=== PATIENT | female | born 1965 | race African-American/Black ===

== ENCOUNTER → 2017-08-30 | Outpatient (CLI) | payer OTHER ==
[~2017-08-30] VITALS: Ht 165.1 cm; Wt 80.5 kg
[~2017-08-30] MED LIST: ACYCLOVIR 400400 MG PO; ALEVE220 M1 PO; AMITRIPTYLINE H25 M2 PO; AMITRIPTYLINE H50 M2 PO; APAP500 PO; ATIVAN0.5 MG PO; CITRATE OF MAG296 ML PO; COLACE 100 MG100 MG PO; DOLOPHINE HCL10 MG PO; ELAVIL PO; FLEXERIL PO; MEDROLDOSEPACK PO; METHADONE HCL 110 M1 PO; METHADONE HCL 110 MG PO; METHADOSE10 M1 PO; METHADOSE10 MG PO; MOBIC15 MG PO; MORPHINE TOP; NEURONTIN 300300 M1 PO; NICOTINE TRANSD21 M1 TRANSDERM; PEPCID20 MG PO; PERCOCET 5-3251 EACH PO; PERCOCET 7.5-51 EACH PO; SILVADENE TOP; XANAX 0.5 MG0.5 M1 PO; XANAX 0.5 MG0.5 MG PO; ZYVOX600 MG PO
--- NOTE | ~2017-08-30 | HPC ---
[facility] [address] [place] [address] PAIN MANAGEMENT CONSULTATION Name: JAREK FLETCHER Room #: REG [facility]#: [id number] Admission: 08/30/17 Attend Phys: Maria Elena Rouse MD Discharge: Date of : 69 Report #: [id number] THIS REPORT FOR: //name// CC: Maria Elena Beach DATE OF SERVICE: 08/30/2017 FOLLOWUP COMPLAINT: "Here for medication renewal." FOLLOWUP HISTORY: The patient is a 52-year-old female who has been seen in the pain clinic in the past. As you may recall, she has had some cervical problems and undergone cervical stabilization with placement of screws and metal. She has had some problems since we saw her last. Last time we saw her, she was going into the operating room at which time an infection was being drained from under her left arm. She has done reasonably well since then. She moved to [place]. After staying in [place] for a while, she felt that [place] was more appropriate. She has moved back [place] and would like to resume medications and treatment in the pain clinic. PHYSICAL EXAMINATION: Blood pressure is 107/80, pulse 81, respiratory rate 16, room air saturation is 100, height 5 feet 5 inches, weight 177 pounds, BMI is 29. The patient has pain and discomfort in her left arm with pain radiating down into the thumb with some numbness in her fingers. Rates her pain as a 2 now, but can rise to level of 7 by the time she finishes work and goes home. Notes that too much activity exacerbates her pain. Head maneuvering and turning can exacerbate pain as well. The change in the weather from hot to cold as well as rainy weather impacts her as well. She finds that muscle relaxants are helpful, rest is helpful as well. IMPRESSION: 1. History of cervical radiculopathy status post cervical fusion with screws and metal. 2. GI upset, takes Pepcid. CURRENT MEDICATIONS: Colace 100 mg b.i.d., Pepcid 20 mg b.i.d., methadone 10 mg b.i.d., gabapentin 300 mg b.i.d., Flexeril 10 mg t.i.d., amitriptyline 25 mg at bedtime 2 pills for a total of 50 mg. RECOMMENDATION: We discussed treatment options with the patient. We will continue with her current medical regimen. She states that she keeps her opioid medications in a controlled environment. She has had no problem with some causing difficulty in mentation. A script for these medications have been written. The patient will call us if she has any problems with her medications. [address] [address] PAIN MANAGEMENT CONSULTATION Name: JAREK FLETCHER Room #: REG CLRita Avalos.#: [id number] Admission: 08/30/17 Attend Phys: Maria Elena Rouse MD Discharge: Date of : 69 Report #: [id number] We would like to thank you for letting us participate in her care. We hope she continues to improve. <ELECTRONICALLY SIGNED> By: Maria Elena Rouse MD 09/06/17 0825 [id number] Maria Elena Rouse MD /PMT
[2017-08-30 10:01] VITALS: BP 107/80
== END | disposition home or self-care (01) ==
LOC: PAIN 07:08
DX: M54.12 Radiculopathy, cervical region (principal); F17.200 Nicotine dependence, unspecified, uncomplicated

== ENCOUNTER → 2018-03-20 | Outpatient (CLI) | payer OTHER | LOC: RAD 13:46 | DX: Z12.31 Encounter for screening mammogram for malignant neoplasm of breast (principal) ==

== ENCOUNTER → 2018-08-01 | Outpatient (CLI) | payer OTHER ==
[~2018-08-01] VITALS: Ht 165.1 cm; Wt 83.6 kg
[~2018-08-01] MED LIST changes: +ACYCLOVIR 800800 MG PO; +CLONIDINE HCL0.1 MG PO; +LIDODERM1 EACH TOP; +LIDODERM1 EACH TRANSDERM; +NORCO 5-325 TA1 EACH PO
[2018-08-01 13:08] VITALS: BP 143/95
== END ==
LOC: PAIN 07:06
DX: M54.2 Cervicalgia (principal); G89.29 Other chronic pain; M79.641 Pain in right hand; Z79.899 Other long term (current) drug therapy

== ENCOUNTER 2018-09-17 08:26 | Emergency (ER) | payer OTHER ==
[~2018-09-17] VITALS: Ht 165.1 cm; Wt 81.7 kg
[2018-09-17 11:17] VITALS: BP 120/87
[2018-09-17] MEDS ORDERED: MEDROLDOSEPACK PO (11:21)
[2018-09-19] MEDS ORDERED: PEPCID20 MG PO (13:47)
[2018-09-19] MEDS ORDERED: AMITRIPTYLINE H25 M2 PO (14:29)
[2018-09-19] MEDS ORDERED: METHADONE HCL 110 M1 PO (14:29)
[2018-09-19] MEDS ORDERED: NEURONTIN 300300 M1 PO (14:29)
[2018-09-19] MEDS ORDERED: XANAX 0.5 MG0.5 MG PO (14:29)
[2018-09-19] MEDS ORDERED: METHADOSE10 MG PO (14:29)
== END 2018-09-17 11:27 | disposition home or self-care (01) ==
LOC: ER 08:26
DX: M54.12 Radiculopathy, cervical region (principal); F41.9 Anxiety disorder, unspecified; Z88.8 Allergy status to other drugs, medicaments and biological substances; Z90.710 Acquired absence of both cervix and uterus

== ENCOUNTER → 2018-09-19 | Outpatient (CLI) | payer OTHER ==
[~2018-09-19] VITALS: Ht 165.1 cm; Wt 86.3 kg
[2018-09-19 13:39] VITALS: BP 107/74
== END ==
LOC: PAIN 06:59
DX: M54.2 Cervicalgia (principal); M25.512 Pain in left shoulder; M25.511 Pain in right shoulder; G89.29 Other chronic pain; M79.602 Pain in left arm; M79.601 Pain in right arm; F17.200 Nicotine dependence, unspecified, uncomplicated; Z79.899 Other long term (current) drug therapy; Z79.891 Long term (current) use of opiate analgesic; Z72.89 Other problems related to lifestyle

== ENCOUNTER → 2018-11-27 | Outpatient (CLI) | payer OTHER | LOC: RAD 09:52 | DX: M79.641 Pain in right hand (principal); M79.642 Pain in left hand ==

== ENCOUNTER → 2019-02-16 | Emergency (ER) | payer OTHER ==
[~2019-02-16] VITALS: Ht 165.1 cm; Wt 80.7 kg
[2019-02-17 00:17] VITALS: BP 118/84
== END ==
LOC: ER 22:26
DX: S61.211A Laceration without foreign body of left index finger without damage to nail, initial encounter (principal); F41.9 Anxiety disorder, unspecified; Z88.8 Allergy status to other drugs, medicaments and biological substances; Z90.710 Acquired absence of both cervix and uterus; W26.8XXA Contact with other sharp object(s), not elsewhere classified, initial encounter; Y92.89 Other specified places as the place of occurrence of the external cause; Y93.89 Activity, other specified; Y99.8 Other external cause status

== ENCOUNTER → 2019-02-18 | Outpatient (CLI) | payer OTHER | LOC: MRI 08:34 | DX: M50.222 Other cervical disc displacement at C5-C6 level (principal); M47.815 Spondylosis without myelopathy or radiculopathy, thoracolumbar region; M48.02 Spinal stenosis, cervical region; M43.22 Fusion of spine, cervical region; F17.200 Nicotine dependence, unspecified, uncomplicated ==

== ENCOUNTER → 2019-03-27 | Outpatient (CLI) | payer OTHER ==
[~2019-03-27] VITALS: Ht 165.1 cm; Wt 84.4 kg
[~2019-03-27] MED LIST changes: +AMITRIPTYLINE100 MG PO; +TORADOL 10 MG T10 MG PO
--- NOTE | ~2019-03-27 | HPC ---
[facility] [address] [place] [address] PAIN MANAGEMENT CONSULTATION Name: JAREK FLETCHER Room #: REG [facility]#: [id number] Admission: 03/27/19 ������������������ Attend Phys: Maria Elena Rouse MD Discharge: ������������������ Date of : 69 Report #: [id number] THIS REPORT FOR: //name// CC: Lebron Rouse DATE OF SERVICE: 03/27/2019 FOLLOWUP COMPLAINT: Here for medicine renewal. HISTORY OF PRESENT ILLNESS: The patient is a 53-year-old female who has been seen in the pain clinic for a number of years. As you recall, she suffers from cervical radiculopathy. She has undergone surgery, but still has pain, which has been problematic. She has had imaging of her neck, which shows possibility of some worsening of her condition. She is reported to have some progression of the disk and uncovertebral degenerative changes at C3/C4, C4/T5 and T1/T2. There is also spinal stenosis at C4/C5. She notes increased pain in her shoulders. Notes that she continues to work on a daily basis. There are sometimes when her pain is more problematic, she states that she makes her work environment ergonomically positioned as possible. Notes that sometimes work on the computer can exacerbate her discomfort. States that she sits on a chair that raises her arms up to sit at a computer at a better angle, but this caused her legs to dangle. She notes some pain and discomfort in her right hand, left hand, and in her fingers. Noticed some increased pain in her finger. States that she did undergo shot in the area of the finger on the right hand. Noted some improvement in that. Does suffer from Raynaud's syndrome that has been reasonably stable at this juncture. Has increased her Elavil medication to 100 mg daily. She feels that this is helpful. She is not having any side effects from that. She has used methadone and her other opioid medications in the past. They have caused considerable amounts of constipation. She sometimes is reluctant to use them because of the constipation. She has undergone injections with Toradol in the past that has been helpful with pain. Notes that her pain sometimes becomes great and this affects her migraines. She does use gabapentin. She has used some creams on her neck. Some of the [id number]-[id number] medications has caused some skin irritation and she is unable to use them. She does note some swelling in her trapezius areas bilaterally. ALLERGIES: MELOXICAM. CURRENT MEDICATIONS: Clonidine 0.1 mg at bedtime, Lidoderm patches to skin, gabapentin 300 mg t.i.d., acyclovir 800 mg, methadone 10 mg 1 p.o. b.i.d., Pepcid 20 mg b.i.d., Elavil was 75 mg now, 100 mg at bedtime, cyclobenzaprine 10 mg t.i.d., and alprazolam 0.5 mg at bedtime for anxiety. PAIN CLINIC ASSESSMENT AND PQRS: [address] [address] PAIN MANAGEMENT CONSULTATION Name: JAREK FLETCHER Room #: REG VARINDER Villarreal#: [id number] Admission: 03/27/19 ������������������ Attend Phys: Maria Elena Rouse MD Discharge: ������������������ Date of : 69 Report #: [id number] 1. History of osteoarthritis. The patient has some arthritic changes in her neck. She is status post fusion. The patient is being treated for rheumatoid arthritis by her tamping machine operator. 2. Height 5 feet 5 inches, weight 186 pounds, BMI is 31. 3. Vital signs: Blood pressure 140/79, pulse 86, respiratory rate 16, room air saturation 98%. Pain intensity is 7/10. 4. Fall history. The patient has not fallen in the last 3 months. 5. Blood thinner. The patient is not on a blood thinning medication. 6. Hypertension. The patient is being treated for hypertension. 7. Opioids greater than 6 weeks. The patient received her medication from one source, pain clinic. 8. Risk assessment tool, low for opioid use. 9. Functional assessment tool. 10. Recreational drug use. The patient denies use of recreational drugs. 11. Tobacco: The patient smokes tobacco, one-half pack of cigarettes per day, smoked for the last 33 years. Discussed the benefits of smoking cessation. 12. Alcohol. The patient occasionally drinks alcoholic beverages. PHYSICAL EXAMINATION: GENERAL: The patient is a well-developed, well-nourished black female, appears her stated age. She is alert and oriented x 3. Her affect is appropriate. Speech is fluent. HEENT: Normocephalic, atraumatic. Extraocular eye muscles intact. Sclerae nonicteric. Mucous membranes are moist. NECK: Without adenopathy or JVD. The patient complains of some swelling sensation in the trapezius area and lower portion of her neck bilaterally. Complains of some decreased range of motion in her neck since fusion. Has pain, which has been radiating down into her shoulders and to arms. Has not noted much problem with her Raynaud's syndrome. At this juncture, did have some problem with her finger on the right and this was injected by Dr. Zuniga with improvement. HEART: Regular rate. ABDOMEN: Nontender. Bowel sounds present. EXTREMITIES: Lower extremity without significant scoliosis, kyphosis, or lordosis. LABORATORY DATA: MRI of the lumbar spine dated 02/18/2019 reveals: 1. C2-C3 shows no focal disk protrusion canal or neural foraminal stenosis. 2. C5-C6 shows no focal disk protrusion. Fusion is noted at this level. Central canal and neural foramen are maintained similar to prior study. 3. C6-C7 fusion with no disk protrusion. Central canal is maintained. There is some mild foraminal encroachment, greater on the left, which is similar to prior study. 4. The C7-T1 shows minor posterior spurring or disk protrusion to the right protrusion to the right with central canal maintained at 12 mm. There is a ypzy-gc-nogtmngy bilateral foraminal encroachment. Uncovertebral degenerative [address] [address] PAIN MANAGEMENT CONSULTATION Name: JAREK FLETCHER Room #: REG [facility].#: [id number] Admission: 03/27/19 ������������������ Attend Phys: Maria Elena Rouse MD Discharge: ������������������ Date of : 69 Report #: [id number] changes noted. T1/T2 shows diffuse broad-based disk bulge with central canal maintained. There is bilateral moderate foraminal encroachment, which shows progression since prior study. 5. There is focal disk bulging diffusely at C4/C5. This causes central canal narrowing measuring 9 mm. This is asymmetric to the right with greater mass effect on the right. Uncovertebral degenerative changes are noted. This disk bulging and central canal encroachment have progressed since the prior study when the canal measured approximately 10 mm. There is also mild bulging and uncovertebral degenerative change bilaterally at C3/C4. The central canal is maintained. Uncovertebral changes are progressed slightly on the right. These changes cause bilateral foraminal encroachment. IMPRESSION: 1. Cervical radiculopathy with pain radiating down to the last two fingers of left hand. 2. Trigger finger, left hand. 3. Rheumatoid arthritis with ulnar deviation of hands and increasing joint disease. 4. Raynaud's disease. RECOMMENDATIONS: We discussed treatment with the patient. The patient does feel somewhat despondent at that time because of her pain condition. She feels that her medications are helpful. She would like for things to improve. She feels that her medications are helpful. Noticed that the increase in Elavil has been beneficial. Feels that the trigger finger in her right hand has improved after the injection. She states that the pain often triggers her migraines. She has had Toradol shots in the past. Those have been beneficial. We will provide the patient with Toradol pills 10 mg. She will take these episodically. We have explained that Toradol can be somewhat harsh on the GI. She will continue with Elavil. We will provide her with 100 mg tablets. A script for gabapentin will be renewed. She will also continue with Flexeril 10 mg t.i.d. The patient has used some patches as well as some creams on her neck. Feels that these had been beneficial in the past, but did cause some skin irritation. She will continue with methadone. The patient complained of constipation. She will try Movantik 25 mg daily, tablets. These capsules will be provided for the patient. They are quite helpful with patients who have narcotic constipation because of opioid use. She will call us if she has any concerns or problems with the medications. We would like to thank you for letting us participate in her care. We hope she continues to improve. ��������������������������������������������� ���������������������������������������� By: ��������������������������������������������� 1510 0431 Maria Elena Rouse MD /zuly
[2019-03-27 08:35] VITALS: BP 140/79
--- NOTE | 2019-03-27 08:58 | NUR ---
Pain Clinic Assessment: 1. History of Osteoarthritis: Not Applicable History of Rheumatoid Arthritis: Not Applicable 2. Height: 5 ft. 5 in. 165.1 cm. Weight: 186.0 lb. oz. 84.369 kg. Patient's BMI: 31.0 3. Vital Signs: BP: 140/79 Pulse: 86 Resp: 16 Temp: 02 Sat: 98 ECG Mon: 4. Pain Intensity: 7 5. Fall Risk: Dizziness: Y Needs help standing or walking: N Fallen in the last 3 months: Y Fall risk comments: 6. Patient on Blood Thinner: None 7. History of Hypertension: Y 8. Opioid Therapy greater than 6 weeks: Y Opiate Contract Signed: 08/30/17 9. Risk Assessment Tool Provided: 10. Functional Assessment Tool: 11. Recreational Drug Use: Never Drug Type: Tobacco Use: Current Every Day Smoker Tobacco Type: Cigarettes Amount or Packs/day: 0.5 How Many Years: 33 Alcohol Use: Yes Frequency: Weekly Quant:
== END ==
LOC: PAIN 03-25 06:49
DX: M47.22 Other spondylosis with radiculopathy, cervical region (principal); M65.30 Trigger finger, unspecified finger; M19.90 Unspecified osteoarthritis, unspecified site; I10 Essential (primary) hypertension; F17.210 Nicotine dependence, cigarettes, uncomplicated; Z88.8 Allergy status to other drugs, medicaments and biological substances; Z79.899 Other long term (current) drug therapy; Z79.891 Long term (current) use of opiate analgesic

== ENCOUNTER 2019-04-24 12:46 | Emergency (ER) | payer OTHER ==
[~2019-04-24] VITALS: Ht 162.6 cm; Wt 84.4 kg
[2019-04-24 13:31] LABS: ABSOLUTE NEUTROPHILS 3.8 thou/uL (1.4-8.2); BASOPHILS 0.8 % (0.0-2.0); EOSINOPHILS 3.3 % (0.0-3.0); HEMATOCRIT 40.5 % (37.0-47.0); HEMOGLOBIN 13.8 gm/dL (12.0-15.0); LYMPHOCYTES 29.4 % (24.0-44.0); MCH 31.5 pg (26.0-34.0); MCHC 34.1 g/dL (28.0-37.0); MCV 92.4 fL (80.0-100.0); MONOCYTES 7.3 % (1.0-8.0); PLATELET COUNT 198 thou/uL (150-400); POLYS 59.2 % (36.0-66.0); RBC 4.38 mil/uL (4.20-5.00); RDW 12.6 % (10.5-14.5); WBC 6.5 thou/uL (4.0-11.0)
[2019-04-24 13:40] LABS: ANION GAP 8 mmol/L (7-16); BUN 9 mg/dL (7-18); CALCIUM 9.2 mg/dL (8.5-10.1); CHLORIDE 104 mmol/L (98-107); CO2 28 mmol/L (21-32); CREATININE 0.8 mg/dL (0.6-1.0); GLUCOSE 88 mg/dL (74-106); SODIUM 140 mmol/L (136-145)
[2019-04-24 13:50] LABS: ALBUMIN 3.8 g/dL (3.4-5.0); SGOT 158 U/L (15-37); SGPT 239 U/L (30-65); TOTAL BILIRUBIN 0.2 mg/dL (<0.1-1.0); TOTAL PROTEIN 7.5 g/dL (6.4-8.2); TROPONIN-I <0.06 ng/mL (<0.06)
--- NOTE | 2019-04-24 15:03 | EKG ---
[place] [address] [facility] [place] [address] ELECTROCARDIOGRAM REPORT Name: JAREK FLETCHER [facility] #: [facility] [id number] ������������������ Admission: 04/24/19 ������������������ Attend Phys: Discharge: ������������������ Date of : 69 Report #: [id number] ����������������������������������������������������������������� [id number] THIS REPORT FOR: //name// [facility] ED Test Date: 2019-04-24 Test Time: 12:54:14 Pat Name: JAREK FLETCHER Department: Room: Gender: F Pickle Sorter: [facility] : 1965 Requested By: Ruby Felton Order Number: [id number] MD: José Locke Measurements Intervals [place] Rate: 72 P: 68 NE: 171 QRS: 37 QRSD: 88 T: 38 QT: 405 QTc: 444 Interpretive Statements Sinus rhythm Probable left atrial enlargement No previous ECG available for comparison Electronically Signed On 04-24-2019 15:03:06 CDT by José Locke [email or web address] ��������������������������������������������� <ELECTRONICALLY SIGNED> ���������������������������������������� By: José Locke MD ��������������������������������������������� 04/24/19 1503 1254 1254 José Locke MD /EPI
[2019-04-24 16:24] VITALS: BP 109/73
== END 2019-04-24 16:24 ==
LOC: ER 12:46
PROVIDERS: Physician Assistant
DX: G43.909 Migraine, unspecified, not intractable, without status migrainosus (principal); F17.210 Nicotine dependence, cigarettes, uncomplicated; Z90.710 Acquired absence of both cervix and uterus; Z98.51 Tubal ligation status; Z88.8 Allergy status to other drugs, medicaments and biological substances

== ENCOUNTER → 2019-04-27 | Outpatient (CLI) | payer OTHER | LOC: CAT 09:41 | DX: G43.909 Migraine, unspecified, not intractable, without status migrainosus (principal) ==

== ENCOUNTER → 2019-05-06 | Outpatient (CLI) | payer OTHER ==
[~2019-05-06] VITALS: Ht 165.1 cm; Wt 84.9 kg
[~2019-05-06] MED LIST changes: +PREDNISONE 10 M10 MG PO
--- NOTE | ~2019-05-06 | HPC ---
[facility] [address] [address] PAIN MANAGEMENT CONSULTATION Name: JAREK FLETCHER Room #: REG VARINDER Bailey.#: [id number] Admission: 05/06/19 ������������������ Attend Phys: Maria Elena Rouse MD Discharge: ������������������ Date of : 69 Report #: [id number] THIS REPORT FOR: //name// CC: Lebron Rouse DATE OF SERVICE: 05/06/2019 CHIEF COMPLAINT: Here for medication renewal and "I had an increase in pain." HISTORY: The patient is a 53-year-old female who has been followed in the pain clinic because of chronic pain. As you recall, she suffers from cervical radiculopathy. She has noticed a significant increase in her pain. She has had some difficulty in working because of the pain. She has had some problems with her vision. Has noted some crackling sensation in her neck. She has been seen by her clinical transformation specialist. She was told that she may need evaluation regarding glaucoma. She has noticed over the past 3 weeks, some problems with her vision. She has had a very severe headache. She has come to work and then had to return home because of the severity of headache. She has had some photophobia. She has gone to the Emergency Room. Evaluation with CT and other workups have not discovered any significant new pathology. States that her primary has spoken to her about the possibility of temporal arteritis. Because of the problems with her vision, she has been started on a steroid regimen. She has noticed some increased problems with this elevated steroid dosing. Has had some episodes of diplopia. Overall, things continue to be somewhat problematic. She feels that her Raynaud's symptoms are stable at this juncture. She has tried to improve the ergonomics of her work space. ALLERGIES, MELOXICAM. CURRENT MEDICATIONS: Clonidine 0.1 mg at bedtime, Lidoderm patches to skin, gabapentin 300 mg t.i.d., acyclovir 800 mg, methadone 10 mg 1 p.o. b.i.d., Pepcid 20 mg b.i.d., Elavil 100 mg at bedtime, cyclobenzaprine 10 mg t.i.d., alprazolam 0.5 mg at bedtime for anxiety, prednisone 10 mg tablets as directed, famotidine 20 mg. PAIN CLINIC ASSESSMENT/PQRS HISTORY: 1. History of osteoarthritis. The patient has some arthritic changes in her neck. She is status post fusion. She is being treated for rheumatoid arthritis by her physical therapist center manager, Dr. Zuniga. 2. Height 5 feet 5 inches, weight 187 pounds, BMI is 31.2. 3. Vital signs: Blood pressure 123/85, pulse 98, respiratory rate 20, room air saturation 100%. 4. Pain intensity, 7/10 5. Fall history. The patient has not fallen in the last [address] [address] PAIN MANAGEMENT CONSULTATION Name: JAREK FLETCHER Room #: REG VARINDER Villarreal#: [id number] Admission: 05/06/19 ������������������ Attend Phys: Maria Elena Rouse MD Discharge: ������������������ Date of : 69 Report #: [id number] 6. Blood thinner. The patient is not on a blood thinning medication. 7. Hypertension. The patient has been treated for hypertension. 8. Opioids greater than 6 weeks. 9. Risk assessment tool, low for opioids. 10. Functional assessment tool. 11. Recreational drug use. The patient denies use of recreational drugs. 12. Tobacco: The patient does smoke cigarettes. Discussed the benefits of smoking cessation. 13. Alcohol: The patient denies frequent use of alcoholic beverages. PHYSICAL EXAMINATION: GENERAL: The patient is a well-developed, well-nourished, black female. Appears her stated age. She is alert and oriented x 3. Her affect is appropriate. Speech is fluent. The patient does have dark glasses on. She states that the light is causing photophobia. Loud noises is problematic. HEENT: Normocephalic, atraumatic. Extraocular eye muscles intact. Sclerae nonicteric. Her eyes too look a little bloodshot. Mucous membranes are moist. NECK: Without adenopathy or JVD. The patient does complain of some discomfort in the neck area. Has some pain bilaterally. Some decreased range of motion. Notes increased neck and shoulder discomfort. No significant changes in Raynaud's syndrome problems. HEART: Regular rate. ABDOMEN: Nontender. Bowel sounds present. EXTREMITIES: Upper extremity muscle strength is judged to be 5-/5 for the major muscle groups in the upper extremity. Lower extremity muscle strength is judged to be 5-/5 for the major muscle groups. The patient without significant scoliosis, kyphosis or lordosis. IMPRESSION: 1. Severe migraine, which has been problematic over the last 3 days. 2. Cervical radiculopathy with pain that radiates down into her fingers and status post cervical radicular pain. 3. Rheumatoid arthritis with ulnar deviation of hands, increasing joint disease. 4. Raynaud's disease. RECOMMENDATIONS: We discussed the patient's condition with her for greater than 30 minutes. At this juncture, we will continue with her medications. A script for renewal of her medications has been provided. She will continue with the cyclobenzaprine/Flexeril medications. She will continue with Elavil 100 mg at bedtime, Toradol 10 mg 1 p.o. 4-6 hours p.r.n. and we will continue with her complex medical regimen using methadone 10 mg 1 p.o. b.i.d. The patient will call us if she has any concerns. She feels that her pain at this point is becoming so problematic, she is unable to work. She may have to apply for disability. States that she really enjoys her job. 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 We would like to thank you for letting us participate in her care. We hope she continues to improve. ��������������������������������������������� ���������������������������������������� By: ��������������������������������������������� 0026 0521 Maria Elena Rouse MD /SPARKLE
[2019-05-06 08:42] VITALS: BP 123/85
--- NOTE | 2019-05-06 09:01 | NUR ---
Pain Clinic Assessment: 1. History of Osteoarthritis: Not Applicable History of Rheumatoid Arthritis: Not Applicable 2. Height: 5 ft. 5 in. 165.1 cm. Weight: 187.2 lb. oz. 84.913 kg. Patient's BMI: 31.2 3. Vital Signs: BP: 123/85 Pulse: 98 Resp: 20 Temp: 02 Sat: 100 ECG Mon: 4. Pain Intensity: 7 5. Fall Risk: Dizziness: Y Needs help standing or walking: N Fallen in the last 3 months: N Fall risk comments: 6. Patient on Blood Thinner: None 7. History of Hypertension: Y 8. Opioid Therapy greater than 6 weeks: Y Opiate Contract Signed: 08/30/17 9. Risk Assessment Tool Provided: refused today 10. Functional Assessment Tool: refused today 11. Recreational Drug Use: Never Drug Type: Tobacco Use: Current Every Day Smoker Tobacco Type: Amount or Packs/day: How Many Years: Alcohol Use: Yes Frequency: Quant:
--- NOTE | 2019-05-06 09:01 | NUR ---
Document wound assessment on appropriate Wound Pressure, Monitor intervention!
== END ==
LOC: PAIN 06:50
DX: M54.12 Radiculopathy, cervical region (principal); M79.646 Pain in unspecified finger(s); G43.909 Migraine, unspecified, not intractable, without status migrainosus; M06.842 Other specified rheumatoid arthritis, left hand; M06.841 Other specified rheumatoid arthritis, right hand; I73.00 Raynaud's syndrome without gangrene

== ENCOUNTER → 2019-05-28 | Outpatient (CLI) | payer OTHER | LOC: MRI 07:14 | DX: R51 Headache (principal) ==

== ENCOUNTER → 2019-06-19 | Outpatient (CLI) | payer OTHER ==
[~2019-06-19] VITALS: Ht 165.1 cm; Wt 86.4 kg
[~2019-06-19] MED LIST changes: +ALEVE220 MG PO; +DIPHENHIST50 MG PO; +EXCEDRIN MIGRA1 EACH PO; +LIORESAL 10 MG10 MG PO; +NORVASC5 MG PO
[2019-06-19 09:29] VITALS: BP 129/69
--- NOTE | 2019-06-19 09:48 | NUR ---
Pain Clinic Assessment: 1. History of Osteoarthritis: Not Applicable History of Rheumatoid Arthritis: Not Applicable 2. Height: 5 ft. 5 in. 165.1 cm. Weight: 190.4 lb. oz. 86.365 kg. Patient's BMI: 31.7 3. Vital Signs: BP: 129/69 Pulse: 88 Resp: 16 Temp: 02 Sat: 100 ECG Mon: 4. Pain Intensity: 6 5. Fall Risk: Dizziness: N Needs help standing or walking: N Fallen in the last 3 months: N Fall risk comments: 6. Patient on Blood Thinner: None 7. History of Hypertension: Y 8. Opioid Therapy greater than 6 weeks: Y Opiate Contract Signed: 08/30/17 9. Risk Assessment Tool Provided: low-0 10. Functional Assessment Tool: 59/70 11. Recreational Drug Use: Never Drug Type: Tobacco Use: Current Every Day Smoker Tobacco Type: Amount or Packs/day: How Many Years: Alcohol Use: Yes Frequency: Quant:
--- NOTE | 2019-08-03 08:39 | HPC ---
[facility] [address] [place] [address] PAIN MANAGEMENT CONSULTATION Name: JAREK FLETCHER Room #: [facility] [id number] Admission: 06/19/19 ������������������ Attend Phys: Maria Elena Rouse MD Discharge: ������������������ Date of : 69 Report #: [id number] THIS REPORT FOR: //name// CC: Lebron Rouse DATE OF SERVICE: 06/19/2019 CHIEF COMPLAINT: Neck, shoulder, and headache pain. HISTORY: The patient is a 54-year-old female who has been followed in the pain clinic for some time. As you may recall, she has had chronic pain for a number of years. She suffers from cervical radiculopathy. She has noticed an increase in her pain over the last number of months. She rates her pain as a 6/10 today. She has had a migraine headache for about the last 4 weeks. She has noted some increased "cracking and popping" in the neck area. She has seen an ENT physician in the recent past. She felt that the problem involves her spine. She has had difficulty performing exercises and movements because of the worsening of the pain. She has found it difficult to work because of the intensity of the pain. She has missed some work days because of the horrible pain. She has had, as you may recall, neck surgery. This was a number of years ago. Because of her pain and discomfort, she has found it more problematic with activities of daily living such as driving. She has returned to the pain clinic for renewal of her medications and feels that they continue to be helpful. ALLERGIES: MELOXICAM. CURRENT MEDICATIONS: Naprosyn 220 mg q.12 hours, Benadryl 50 mg p.r.n. for migraine use, Excedrin Migraine tablets p.r.n., Norvasc 5 mg, prednisone 10 mg as directed, cyclobenzaprine 10 mg t.i.d. p.r.n. for spasms, methadone 10 mg b.i.d., amitriptyline 100 mg at bedtime, gabapentin 300 mg t.i.d., alprazolam 0.5 mg p.r.n. anxiety b.i.d., famotidine 20 mg b.i.d., acyclovir 800 mg 5 times daily. PAIN CLINIC ASSESSMENT AND PQRS: 1. History of osteoarthritis. The patient has arthritic changes in her neck. She is status post fusion. She is being treated for rheumatoid arthritis. 2. Height 5 feet 5 inches, weight 190 pounds, BMI is 31.7. 3. Vital Signs: Blood pressure 129/69, pulse 88, respiratory rate 16, room air saturations 100. 4. Pain intensity 6/10. 5. Fall history: The patient has not fallen in the last 3 months. 6. Blood thinner. The patient is not on a blood thinning medication. 7. Hypertension. The patient is being treated for hypertension. 8. Opioids greater than 6 weeks. The patient received medication from one [address] [address] PAIN MANAGEMENT CONSULTATION Name: JAREK FLETCHER Room #: REG CLI Cherelle#: [id number] Admission: 06/19/19 ������������������ Attend Phys: Maria Elena Rouse MD Discharge: ������������������ Date of : 69 Report #: [id number] source, pain clinic. 9. Risk assessment tool, low for opioid use. 10. Functional assessment tool 59/70. 11. Recreational drug use. The patient denies use of recreational drugs. 12. Tobacco: The patient currently smokes tobacco. Risks and benefits of smoking cessation have been discussed. 13. Alcohol: The patient occasionally drinks, uses alcoholic beverages. PHYSICAL EXAMINATION: GENERAL: The patient is a well-developed, well-nourished black female, appears her stated age. She is alert and oriented x 3. Affect is appropriate. Speech is fluent. The patient is complaining of increased headache/migraine discomfort with photophobia, increased discomfort with loud noises. HEENT: Normocephalic, atraumatic. Extraocular eye muscles are intact. Sclerae nonicteric. Mucous membranes are moist. NECK: Without adenopathy. The patient has some decreased range of motion in her neck. Left lateral rotation, right lateral rotation, extension and flexion cause some increased pain and discomfort. HEART: Regular rate. ABDOMEN: Nontender. Bowel sounds are present. EXTREMITIES: Upper extremity muscle strength is judged to be 5-/5 for the major muscle groups in the upper extremity. The patient has a history of Raynaud's syndrome. Notes some changes in her fingers as a result of this, particularly during the cold weather. The patient has a trigger finger as well. Has had surgery with release in the past. Has noted some increased symptomatology from this. The patient without significant scoliosis, kyphosis or lordosis. IMPRESSION: 1. Severe migraines. 2. Cervical radicular pain with pain radiating down to her fingers status post cervical fusion. 3. Rheumatoid arthritis with ulnar deviation of her hands, increasing joint pain. 4. Raynaud's. 5. Trigger finger. RECOMMENDATIONS: 1. We discussed treatment options with the patient. At this juncture, we will continue with her current medications. We have discussed the use of opioid medications in helping control pain. We will continue with the use of cyclobenzaprine to help with muscle spasms. We will try baclofen and see whether this medication provides more in pain control benefit with less sedation. We will also continue with methadone 10 mg 1 p.o. b.i.d. The patient will continue with gabapentin 300 mg 1 p.o. t.i.d. We will also continue with amitriptyline 100 mg at bedtime. Oftentimes, this medication can be helpful [facility] [address] [place] [address] PAIN MANAGEMENT CONSULTATION Name: JAREK FLETCHER [facility] [id number] Admission: 06/19/19 ������������������ Attend Phys: Maria Elena Rouse MD Discharge: ������������������ Date of : 69 Report #: [id number] with sleep as well as with chronic pain and nerve symptomatology. 2. The patient will return to the Pain Clinic as needed. 3. She has explained that she has been having quite a bit of difficulty with working because of the severity of her pain. At this juncture, she feels that she needs to consider pursuing disability. We would like to thank you for letting us participate in her care. We hope she continues to improve. ��������������������������������������������� <ELECTRONICALLY SIGNED> ���������������������������������������� By: Maria Elena Rouse MD ��������������������������������������������� 08/03/1937 7 54 Maria Elena Rouse MD /nt
== END ==
LOC: PAIN 06-17 06:49
DX: M54.12 Radiculopathy, cervical region (principal); G43.909 Migraine, unspecified, not intractable, without status migrainosus; R06.9 Unspecified abnormalities of breathing; I73.00 Raynaud's syndrome without gangrene; M65.30 Trigger finger, unspecified finger; Z79.899 Other long term (current) drug therapy; Z88.8 Allergy status to other drugs, medicaments and biological substances

== ENCOUNTER → 2019-09-04 | Outpatient (CLI) | payer OTHER ==
[~2019-09-04] VITALS: Ht 165.1 cm; Wt 83.5 kg
[2019-09-04 09:31] VITALS: BP 136/80
--- NOTE | 2019-09-04 09:40 | NUR ---
Pain Clinic Assessment: 1. History of Osteoarthritis: Not Applicable History of Rheumatoid Arthritis: Not Applicable 2. Height: 5 ft. 5 in. 165.1 cm. Weight: 184.0 lb. oz. 83.462 kg. Patient's BMI: 30.6 3. Vital Signs: BP: 136/80 Pulse: 93 Resp: 16 Temp: 02 Sat: 97 ECG Mon: 4. Pain Intensity: 7-NOW 5. Fall Risk: Dizziness: Y Needs help standing or walking: N Fallen in the last 3 months: N Fall risk comments: 6. Patient on Blood Thinner: None 7. History of Hypertension: Y 8. Opioid Therapy greater than 6 weeks: Y Opiate Contract Signed: 08/30/17 9. Risk Assessment Tool Provided: low-0 10. Functional Assessment Tool: 59/70 11. Recreational Drug Use: Never Drug Type: Tobacco Use: Current Every Day Smoker Tobacco Type: Cigarettes Amount or Packs/day: 1/4 PK How Many Years: Alcohol Use: Yes Frequency: Quant:
--- NOTE | 2019-09-18 08:25 | HPC ---
[facility] [address] [address] PAIN MANAGEMENT CONSULTATION Name: JAREK FLETCHER Room #: REG VARINDER JoseJuanjo.#: [id number] Admission: 09/04/19 Attend Phys: Maria Elena Rouse MD Discharge: Date of : 69 Report #: [id number] THIS REPORT FOR: //name// CC: Jenelle Rouse DATE OF SERVICE: 09/04/2019 CHIEF COMPLAINT: Neck pain, shoulder pain and headaches. HISTORY: The patient is a 54-year-old female who has been followed in the pain clinic. As you may recall, she has a history of chronic pain. She has had cervical radicular pain in the past. She has undergone cervical fusion. She still has pain, which remains problematic. She does have a history of migraine headaches. She has had some migraine headaches, which have been quite problematic and cause her to have difficulty remaining at work. She has noted some increased changing pain in her neck. She notes that there is a cracking and popping sensation in her neck with certain movements. She has used opioid medications and found them helpful. At times, they are less effective. The patient finds it difficult to work because of the constant pain. She does have a history of Raynaud's disease. The weather has changed and she has noticed that it has caused some increased problems with her hands. She is having some problems with a trigger finger. She continues to work despite her many pain generators. She has returned today for renewal of her medication. ALLERGIES: MELOXICAM. CURRENT MEDICATIONS: Naprosyn 220 mg 1 p.o. q. 12 hours, Benadryl 50 mg p.r.n. for migraines, Excedrin Migraine caplets, B. C powders p.r.n., Norvasc 5 mg, prednisone 10 mg as directed, cyclobenzaprine 10 mg t.i.d. p.r.n. for spasms, methadone 10 mg b.i.d., amitriptyline 100 mg at bedtime, gabapentin 300 mg t.i.d., alprazolam 0.5 mg p.r.n. anxiety b.i.d., famotidine 20 mg b.i.d., acyclovir 800 mg 5 times daily. PAIN CLINIC ASSESSMENT AND PQRS: 1. History of osteoarthritis with some arthritic changes in her neck. The patient has some problems with her finger/trigger finger, rheumatoid arthritis. The patient is being treated for rheumatoid arthritis. 2. Height 5 feet 5 inches, weight 184 pounds, BMI is 30. 3. Vital Signs: Blood pressure 136/80, pulse 93, respiratory rate 16, room air saturation 97%. 4. Pain intensity, 7/10 now. 5. Fall history: The patient has not fallen in the last 3 months. 6. Blood thinner. The patient is not on a blood thinning medication. [address] [address] PAIN MANAGEMENT CONSULTATION Name: JAREK FLETCHER Room #: [facility] [id number] Admission: 09/04/19 Attend Phys: Maria Elena Rouse MD Discharge: Date of : 69 Report #: [id number] 7. Hypertension. The patient is being treated for hypertension. 8. Opioids greater than 6 weeks. The patient received medication from one source, the pain clinic. 9. Risk assessment tool, low for opioid use. 10. Functional assessment tool 59/70. 11. Recreational drug use: The patient denies. 12. Tobacco: The patient smokes 1/4 pack of cigarettes per day, I have discussed the benefits of smoking cessation. 13. Alcohol: The patient occasionally drinks alcoholic beverages. PHYSICAL EXAMINATION: GENERAL: The patient is a well-developed, well-nourished black female, appears her stated age. She is alert and oriented x 3. Her affect is appropriate. Speech is fluent. HEENT: Normocephalic, atraumatic. Extraocular eye muscles intact. Sclerae nonicteric. Mucous membranes are moist. NECK: With increased pain with increasing range of motion. Left lateral rotation, left and right lateral rotation, lumbar extension and flexion all cause increased pain and discomfort in the neck and some pain down into the arm shoulder area. ABDOMEN: Nontender. Bowel sounds present. HEART: Regular rate. EXTREMITIES: Upper extremity muscle strength judged to be 4+/5 for the major muscle groups in the upper extremity. The patient complains of some spasms in her hands. She has difficulty moving her hands because of the spasms. She has a history of Raynaud's disease. Notes that the fingers are bluish at this point. She states that she noticed that they will continue to change colors as a result of the colder weather. She is wearing gloves. The patient has a trigger finger. She still feels that there might be some problems with her finger. The patient without significant scoliosis, kyphosis or lordosis. IMPRESSION: 1. Severe migraines. 2. Cervical radiculopathy, status post pain with pain radiating down to the fingers, status post cervical fusion. 3. Rheumatoid arthritis with ulnar deviation of her hand with increasing joint dysfunction. 4. Raynaud's syndrome with changes of the blood flow. 5. Trigger finger. RECOMMENDATIONS: We discussed treatment options with the patient. Risks and benefits of opioid medications have been reviewed as we have in the past. She is aware that opioid medications can be helpful. They can become less effective as time goes on, secondary to development of tolerance. The patient feels that her medications are helpful. She would not be able to work without their use at this juncture. She feels that the migraine headaches can be incapacitating and [facility] [address] [place] [address] PAIN MANAGEMENT CONSULTATION Name: JAREK FLETCHER [facility] [id number] Admission: 09/04/19 Attend Phys: Maria Elena Rouse MD Discharge: Date of : 69 Report #: [id number] makes it virtually impossible for her to work. She has noted some cramping sensation in her hands and fingers. We will continue with methadone 10 mg 1 p.o. b.i.d., she will also continue with baclofen to help with muscle spasms 1 p.o. t.i.d., amitriptyline 100 mg to be taken at bedtime to help with the pain, as well as augment sleep. The patient will also continue with gabapentin 300 mg 1 p.o. t.i.d. We would like to thank you for letting us participate in her care. We hope she continues to improve. <ELECTRONICALLY SIGNED> By: Maria Elena Rouse MD 09/18/19 0825 [id number] MD yasmani Mauricio
== END ==
LOC: PAIN 07:03
DX: G89.29 Other chronic pain (principal); M54.12 Radiculopathy, cervical region; G43.909 Migraine, unspecified, not intractable, without status migrainosus; I10 Essential (primary) hypertension; F17.210 Nicotine dependence, cigarettes, uncomplicated; Z72.89 Other problems related to lifestyle; Z79.899 Other long term (current) drug therapy; Z79.891 Long term (current) use of opiate analgesic

== ENCOUNTER → 2020-07-29 | Outpatient (CLI) | payer OTHER ==
[~2020-07-29] VITALS: Ht 165.1 cm; Wt 82.0 kg
[~2020-07-29] MED LIST changes: +NEURONTIN 300M300 M2 PO; +PAXIL 20 MG TAB20 MG PO
[2020-07-29 09:33] VITALS: BP 137/87
--- NOTE | 2020-07-29 09:48 | NUR ---
Pain Clinic Assessment: 1. History of Osteoarthritis: Not Applicable History of Rheumatoid Arthritis: Not Applicable 2. Height: 5 ft. 5 in. 165.1 cm. Weight: 180.8 lb. oz. 82.010 kg. Patient's BMI: 30.1 3. Vital Signs: BP: 137/87 Pulse: 81 Resp: 14 Temp: 02 Sat: 100 ECG Mon: 4. Pain Intensity: 4 5. Fall Risk: Dizziness: Y Needs help standing or walking: N Fallen in the last 3 months: N Fall risk comments: 6. Patient on Blood Thinner: None 7. History of Hypertension: Y 8. Opioid Therapy greater than 6 weeks: Y Opiate Contract Signed: 08/30/17 9. Risk Assessment Tool Provided: low-0 10. Functional Assessment Tool: 59/70 11. Recreational Drug Use: Never Drug Type: Tobacco Use: Current Every Day Smoker Tobacco Type: Amount or Packs/day: How Many Years: Alcohol Use: Yes Frequency: Quant:
--- NOTE | 2020-08-09 13:35 | HPC ---
[facility] [address] [address] PAIN MANAGEMENT CONSULTATION Name: JAREK FLETCHER Room #: REG VARINDER Dedrick.#: [id number] Admission: 07/29/20 Attend Phys: Maria Elena Rouse MD Discharge: Date of : 69 Report #: [id number] THIS REPORT FOR: cc: Jenelle Cote Beth RNP Brown, N. Wayne MD ~ CC: Jenelle Rouse DATE OF SERVICE: 07/29/2020 CHIEF COMPLAINT: Continued neck pain, arthritic pains in the hand, Raynaud's and migraines. HISTORY: The patient is a 55-year-old female who has been followed in the pain clinic because of chronic pain. She has continued to have pain, which is problematic. She feels that her medications have been helpful. She states that because of her financial situation, she is not working. She has been stretching her medications as long as she could. She has returned today for renewal of her medications. Continues to have pain in her neck involving both shoulders. Has some headache pain. Also, has pain in the mid back area, which appears somewhat new. Has discomfort down in her arms. As you may recall, she has had cervical intervention because of cervical radiculopathy in the past. Notes that certain activities exacerbate her discomfort such as typing too much activity, cold weather bending. Notes that her medications are helpful. Lying down and resting could be helpful as well. ALLERGIES: MELOXICAM. CURRENT MEDICATIONS: Acyclovir 800 mg, Pepcid 20 mg b.i.d., Xanax 0.5 mg b.i.d. p.r.n. anxiety, Aspirin/acetaminophen/caffeine migraine gel tabs, Benadryl 50 mg p.r.n. Migraine, Paxil 20 mg, Flexeril 10 mg 1 a.m., 1 midday, 2 evening, methadone 10 mg b.i.d., amitriptyline 100 mg, gabapentin 300 mg t.i.d., toward Toradol 10 mg every other day, total of 30 tablets p.r.n. migraine headaches. PAIN CLINIC ASSESSMENT AND PQRS: 1. History of osteoarthritic changes with osteoarthritic change in the neck. The patient has some problems with her fingers/trigger finger, rheumatoid arthritis. The patient is being treated for rheumatoid arthritis. 2. Height 5 feet 5 inches, weight 180 pounds, BMI is 30. 3. Vital signs: Blood pressure 137/87, pulse 81, respiratory rate 14, room air saturation is 100%. 4. Pain intensity 4/10. 5. Fall history: The patient has not fallen in the last 3 months. 6. Blood thinner. The patient is not on a blood thinning medication. 7. Hypertension. The patient is being treated for hypertension. [address] [address] PAIN MANAGEMENT CONSULTATION Name: JAREK FLETCHER Room #: REG [facility].#: [id number] Admission: 07/29/20 Attend Phys: Maria Elena Rouse MD Discharge: Date of : 69 Report #: [id number] 8. Opioids greater than 6 weeks. The patient received medication from the pain clinic. 9. Risk assessment tool, low for opioid use. 10. Functional assessment tool 59/70. 11. Recreational drug use. The patient denies. 12. Tobacco: The patient does smoke. 13. Alcohol. The patient occasionally drinks alcoholic beverages. PHYSICAL EXAMINATION: GENERAL: The patient is a well-developed, well-nourished black female, appears her stated age. She is alert and oriented x 3. Her affect is appropriate. Speech is fluent. HEENT: Normocephalic, atraumatic. Extraocular eye muscles intact. Sclerae nonicteric. Mucous membranes are moist. NECK: Without adenopathy or JVD. The patient complains of some feelings of crackling when she turns her head from side to side or moves it from flexion and extension. Complains of some pain in her arms and occasionally pain that radiates down into her arms. ABDOMEN: Nontender. Bowel sounds present. HEART: Regular rate. EXTREMITIES: Upper extremity muscle strength judged to be 4+/5 for the major muscle groups in the upper extremity. The patient has some spasms in her hands. Has some difficulty moving her hands because of spasms. Has Raynaud's disease. Notes some changes in her hand color at times when the weather changes. Low back pain. The patient without significant scoliosis, kyphosis or lordosis. IMPRESSION: 1. Migraine has headaches. 2. Cervical radiculopathy, status post surgery with pain radiating down to the fingers. 3. History of cervical fusion. 4. Rheumatoid arthritis with beginning of ulnar deviation of her hands with increasing joint dysfunction. 5. Raynaud's symptoms with changes in blood flow. RECOMMENDATIONS: We discussed treatment options with the patient. At this juncture, we will continue with her medications. A script for her medications have been provided. The patient is aware that opioid medications can become less effective as time goes on. She feels that her medications are helpful. She is able to get more accomplished. Keeps her medications in a guarded area. We will renew her medications of Flexeril 10, 120 tablets 1 p.o. 3 times a day, total of 4 tablets, she will continue with methadone 10 mg 1 p.o. b.i.d. She has been given 3 months of this medication. She will also continue with amitriptyline 100 mg 1 tablet at bedtime. She will continue with gabapentin 300 mg t.i.d. She will have Toradol 10 mg to take on those times if the migraine headaches become quite problematic. We have discussed that Toradol can be [facility] [address] [place] [address] PAIN MANAGEMENT CONSULTATION Name: JAREK FLETCHER Room #: REG [facility].#: [id number] Admission: 07/29/20 Attend Phys: Maria Elena Rouse MD Discharge: Date of : 69 Report #: [id number] somewhat problematic for some people in regards to her GI tract. She will stop taking the medication should she note any GI complaints. We would like to thank you for letting us participate in her care. We hope she continues to improve. <ELECTRONICALLY SIGNED> By: Maria Elena Rouse MD 08/09/20 1335 [id number] Maria Elena Rouse MD /nt
== END ==
LOC: PAIN 06:52
PROVIDERS: ATTEND Anesthesiology Pain Medicine
DX: G43.909 Migraine, unspecified, not intractable, without status migrainosus (principal); M54.12 Radiculopathy, cervical region; M06.842 Other specified rheumatoid arthritis, left hand; M06.841 Other specified rheumatoid arthritis, right hand; I73.00 Raynaud's syndrome without gangrene; Z98.1 Arthrodesis status; Z88.8 Allergy status to other drugs, medicaments and biological substances; Z79.891 Long term (current) use of opiate analgesic; Z98.890 Other specified postprocedural states; Z79.899 Other long term (current) drug therapy

== ENCOUNTER → 2021-01-18 | Outpatient (CLI) | payer OTHER ==
[~2021-01-18] VITALS: Ht 165.1 cm; Wt 83.5 kg
[~2021-01-18] MED LIST changes: +AMITRIPTYLINE H75 M2 PO; +NEURONTIN600 MG PO; +STOOL SOFTENER1 EAC2 PO
[2021-01-18 08:35] VITALS: BP 107/58
--- NOTE | 2021-01-18 08:52 | NUR ---
Pain Clinic Assessment: 1. History of Osteoarthritis: Not Applicable History of Rheumatoid Arthritis: Not Applicable 2. Height: 5 ft. 5 in. 165.1 cm. Weight: 184.0 lb. oz. 83.462 kg. Patient's BMI: 30.6 3. Vital Signs: BP: 107/58 Pulse: 90 Resp: 16 Temp: 02 Sat: 98 ECG Mon: 4. Pain Intensity: 8 5. Fall Risk: Dizziness: Y Needs help standing or walking: N Fallen in the last 3 months: N Fall risk comments: 6. Patient on Blood Thinner: None 7. History of Hypertension: Y 8. Opioid Therapy greater than 6 weeks: Y Opiate Contract Signed: 08/30/17 9. Risk Assessment Tool Provided: low-0 10. Functional Assessment Tool: 59/70 11. Recreational Drug Use: Never Drug Type: Tobacco Use: Current Every Day Smoker Tobacco Type: Cigarettes Amount or Packs/day: 5-10 How Many Years: Alcohol Use: Yes Frequency: Special Occasions Quant: 1
== END ==
LOC: PAIN 06:44
PROVIDERS: ATTEND Anesthesiology Pain Medicine
DX: M54.12 Radiculopathy, cervical region (principal); M06.9 Rheumatoid arthritis, unspecified; G43.909 Migraine, unspecified, not intractable, without status migrainosus; Z88.8 Allergy status to other drugs, medicaments and biological substances; Z79.899 Other long term (current) drug therapy

== ENCOUNTER → 2021-09-08 | Outpatient (CLI) | payer OTHER ==
[~2021-09-08] VITALS: Ht 165.1 cm; Wt 80.2 kg
[~2021-09-08] MED LIST changes: +CYMBALTA30 MG PO; +IMITREX100 MG PO; +METROGEL-VAGINA70 GM VAG; +ROPINIROLE HCL0.5 MG PO
[2021-09-08 09:36] VITALS: BP 123/89
== END ==
LOC: PAIN 07:07
PROVIDERS: ATTEND Anesthesiology Pain Medicine
DX: M54.12 Radiculopathy, cervical region (principal); G43.809 Other migraine, not intractable, without status migrainosus; M06.849 Other specified rheumatoid arthritis, unspecified hand; I73.00 Raynaud's syndrome without gangrene

== ENCOUNTER → 2021-12-27 | Outpatient (CLI) | payer OTHER ==
[~2021-12-27] VITALS: Ht 165.1 cm; Wt 81.3 kg
[~2021-12-27] MED LIST changes: +LINZESS72 MCG PO
[2021-12-27 09:41] VITALS: BP 122/93
--- NOTE | 2021-12-27 09:56 | NUR ---
Pain Clinic Assessment: 1. History of Osteoarthritis: Not Applicable History of Rheumatoid Arthritis: Not Applicable 2. Height: 5 ft. 5 in. 165.1 cm. Weight: 179.2 lb. oz. 81.285 kg. Patient's BMI: 29.8 3. Vital Signs: BP: 122/93 Pulse: 95 Resp: 18 Temp: 02 Sat: 98 ECG Mon: 4. Pain Intensity: 8 5. Fall Risk: Dizziness: Y Needs help standing or walking: N Fallen in the last 3 months: N Fall risk comments: 6. Patient on Blood Thinner: None 7. History of Hypertension: Y 8. Opioid Therapy greater than 6 weeks: Y Opiate Contract Signed: 08/30/17 9. Risk Assessment Tool Provided: low-0 10. Functional Assessment Tool: 59/70 11. Recreational Drug Use: Never Drug Type: Tobacco Use: Current Every Day Smoker Tobacco Type: Cigarettes Amount or Packs/day: 3 CIGGS How Many Years: Alcohol Use: Yes Frequency: Weekly Quant: 2
== END ==
LOC: PAIN 12-08 07:00
PROVIDERS: ATTEND Anesthesiology Pain Medicine
DX: M54.12 Radiculopathy, cervical region (principal); G43.909 Migraine, unspecified, not intractable, without status migrainosus; M06.9 Rheumatoid arthritis, unspecified; I73.00 Raynaud's syndrome without gangrene; Z79.899 Other long term (current) drug therapy; Z88.8 Allergy status to other drugs, medicaments and biological substances